=== PATIENT | female | born 1980 | race Caucasian/White ===

== ENCOUNTER 2017-11-20 09:10 | Day surgery (SDC) | payer SELFPAY ==
[~2017-11-20 09:10] MED LIST: Buffered Lidocaine 0.9% SYRIN* 5 ML/SYR SYRINGE INTRADERM ONE; Sodium Citrate/Citric Acid* 15 ML UDC PO ONE
[2017-11-20] MEDS ORDERED: Ondansetron INJ* 2 MG/ML VIAL ONE (09:18)
[2017-11-20] MEDS ORDERED: Dexamethasone IV* 4 MG/ML 1 ML (4 MG) ONE (09:18)
[2017-11-20] MEDS ORDERED: Scopolamine 1.5 mg* PATCH ONE (09:18)
[2017-11-20] MEDS ORDERED: ceFAZolin 2 GM PREMIX (*) 2 GM/50 ML BAG IVPB ONE (09:19)
[2017-11-20] MEDS ORDERED: Sodium Citrate/Citric Acid* 15 ML UDC ONE (09:21)
[2017-11-20] MEDS ORDERED: Bacitracin IV* 50,000 UNITS INJ ONE (10:34)
[2017-11-20] MEDS ORDERED: ceFAZolin 1 GM VIAL(*) ONE (10:34)
[2017-11-20] MEDS ORDERED: Lidocaine 2% PF * 5 ML VIAL ONE (10:35)
[2017-11-20] MEDS ORDERED: Propofol* 10 MG/ML 20 ML BTL IV PUSH ONE (10:35)
[2017-11-20] MEDS ORDERED: fentaNYL* 50 MCG/ML 2 ML VIAL (100 MCG VIAL) ONE ×4 (10:37→13:53)
[2017-11-20] MEDS ORDERED: Gentamicin ADULT (*) 40 MG/ML VIAL ONE (10:39)
[2017-11-20] MEDS ORDERED: Naloxone* 0.4 MG/ML 1 ML VIAL IV PRN (13:06)
[2017-11-20] MEDS: fentaNYL* 50 MCG/ML 2 ML VIAL (100 MCG VIAL) IV PRN ×3 (13:08→13:54)
[2017-11-20] MEDS ORDERED: HYDROcodone/ACETAMIN 5-325 MG* 1 TAB ONE (13:20)
[2017-11-20 14:38] VITALS: BP 119/74
== END 2017-11-20 14:29 | disposition home or self-care (01) ==
LOC: OREAST 09:10
PROVIDERS: ATTEND Plastic Surgery
DX: Z41.1 Encounter for cosmetic surgery (principal)
CPT/HCPCS: A9270-GY; J0690; J1100; J1580; J2405; J2704; J3010